=== PATIENT | female | born 1965 | race African-American/Black ===

== ENCOUNTER 2018-10-08 08:47 | Emergency (ER) | payer OTHER ==
[2018-10-08 09:00] VITALS: BP 137/90; PULSE 72; TEMP 98.5; BMI 36.0
[2018-10-08] MEDS ORDERED: IBUPROFEN 400 MG TABLET (FP) PO ONE ×2 (09:09→09:17)
--- NOTE | 2018-10-08 09:14 | PDOC ---
History of Present Illness - General Chief Complaint: Injury Stated Complaint: FALL / LF KNEE PAIN Time Seen by Provider: 10/08/18 09:03 History Source: Patient Exam Limitations: Clinical Condition - History of Present Illness Initial Comments: 10/08/18 09:09 Patient with no significant PMhx present with complains of pain to anterior left knee s/p slip and fall on her way to work an hour ago. Patient report she only hit her knee during the fall and did not hit head or had LOC. Patient report increased pain to left knee with ambulation. Denies previous injury or trauma to knee. Timing/Duration: 1 hour Past History - Past Medical History Allergies/Adverse Reactions: Allergies Allergy/AdvReac Type Severity Reaction Status Date / Time No Known Allergies Allergy Verified 10/08/18 09:01 Home Medications: Ambulatory Orders Naproxen 500 mg PO BID PRN #20 tablet 10/08/18 COPD: No - Suicide/Smoking/Psychosocial Hx Smoking History: Never smoked Hx Alcohol Use: No Drug/Substance Use Hx: No Review of Systems - Review of Systems Able to Perform ROS?: Yes Is the patient limited Colombian proficient: No Constitutional: No: Weakness Respiratory: No: Symptoms reported Cardiac (ROS): No: Symptoms Reported ABD/GI: No: Symptoms Reported Musculoskeletal: Yes: See HPI, Joint Pain (left knee), Joint Swelling (left knee ), Muscle Pain (anterior left knee). No: Muscle Weakness Integumentary: No: Bruising, Change in Color, Erythema Neurological: No: Numbness, Paresthesia, Tingling, Weakness, Dizziness All Other Systems: Reviewed and Negative *Physical Exam - Vital Signs Last Vital Signs Temp Pulse Resp BP Pulse Ox 98.5 F 72 18 137/90 99 10/08/18 08:55 10/08/18 08:55 10/08/18 08:55 10/08/18 08:55 10/08/18 08:55 - Physical Exam General Appearance: Yes: Nourished, Appropriately Dressed, Mild Distress HEENT: positive: Normal ENT Inspection Respiratory/Chest: negative: Respiratory Distress, Accessory Muscle Use Musculoskeletal: positive: Normal Inspection, Other (moderate tenderness over anterior patella of left knee. mild swelling over anterior patella of left knee. negative anterior-posterior drawer test of left knee) Extremity: positive: Normal Capillary Refill, Normal Inspection, Swelling (mild swelling over anterior patella of left knee) Neurologic: positive: Fully Oriented, Alert, Motor Strength 5/5 (left knee) Moderate Sedation - Procedure Monitoring Vital Signs: Procedure Monitoring Vital Signs Temperature 98.5 F 10/08/18 08:55 Pulse Rate 72 10/08/18 08:55 Respiratory Rate 18 10/08/18 08:55 Blood Pressure 137/90 10/08/18 08:55 O2 Sat by Pulse Oximetry (%) 99 10/08/18 08:55 ED Treatment Course - RADIOLOGY Radiology Studies Ordered: Category Date Time Status KNEE 3 POS-LEFT [RAD] Stat Radiology 10/08/18 09:06 Ordered LEG TIB/FIB-LEFT [RAD] Stat Radiology 10/08/18 09:06 Ordered Medical Decision Making - Medical Decision Making 10/08/18 09:14 Patient with no significant PMhx present with complains of pain to anterior left knee s/p slip and fall on her way to work an hour ago. Patient report she only hit her knee during the fall and did not hit head or had LOC. Patient report increased pain to left knee with ambulation. X-rays of left knee ordered. motrin 800mg PO ordered for pain 10/08/18 09:51 X-ray of left knee and lower leg shows no acute fracture or dislocation. Symptoms likely knee contusion. Patient is stable for discharge on the support brace and naproxen as needed for pain. Left knee wrapped with Randal bandage. *DC/Admit/Observation/Transfer Diagnosis at time of Disposition: Contusion of left knee, initial encounter, Left anterior knee pain - Discharge Dispostion Disposition: HOME Condition at time of disposition: Stable Decision to Admit order: No - Prescriptions Prescriptions: Naproxen 500 mg PO BID PRN #20 tablet PRN Reason: pain - Referrals Referrals: Td Plunkett DO [Staff Physician] - - Patient Instructions Printed Discharge Instructions: DI for Knee Pain Additional Instructions: x-ray of knee shows no acute fracture or dislocation. Take medication as prescribed as needed for pain. Keep Randal wrap in left knee daily as needed for pain. Use knee brace to help support knee. Rest knee for the next 2 days. Follow -up referred to orthopedics if symptoms persist for more than 4 days - Post Discharge Activity Forms/Work/School Notes: Back to Work
== END 2018-10-08 09:56 | disposition home or self-care (01) ==
LOC: JERFT 08:47
DX: S80.02XA Contusion of left knee, initial encounter (principal); W18.39XA Other fall on same level, initial encounter; Y93.89 Activity, other specified; Y92.238 Other place in hospital as the place of occurrence of the external cause; Y99.0 Civilian activity done for income or pay
CPT/HCPCS: 73562-TC-LT-FY; 73590-TC-LT-FY; 99281-25

== ENCOUNTER 2019-08-28 16:15 | Emergency (ER) | payer OTHER ==
[2019-08-28 16:24] VITALS: BP 136/86; PULSE 80; BMI 30.5
[2019-08-28 16:25] VITALS: TEMP 98.9
--- NOTE | 2019-08-28 16:26 | PDOC ---
Rapid Medical Evaluation Chief Complaint: Cold Symptoms Time Seen by Provider: 08/28/19 16:24 Medical Evaluation: Allergies Allergy/AdvReac Type Severity Reaction Status Date / Time No Known Allergies Allergy Verified 08/28/19 16:24 Vital Signs Temp Pulse Resp BP Pulse Ox 9839 F H 80 18 136/86 98 08/28/19 16:21 08/28/19 16:21 08/28/19 16:21 08/28/19 16:21 08/28/19 16:21 08/28/19 16:25 I have performed a brief in-person evaluation of this patient. The patient presents with a chief complaint of: uri s/s Pertinent physical exam findings: vss, no resp distress I have ordered the following: none The patient will proceed to the ED for further evaluation. Discharge Disposition - Diagnosis Cough, Flu-like symptoms - Discharge Dispostion Disposition: HOME Condition at time of disposition: Stable - Prescriptions Prescriptions: Ibuprofen 600 mg PO Q6H #30 tablet Ibuprofen 600 mg PO Q6H #30 tablet Ondansetron [Zofran Odt -] 4 mg SL TID #10 od.tablet Ondansetron [Zofran Odt -] 4 mg SL TID #10 od.tablet Oseltamivir Phosphate [Tamiflu] 75 mg PO BID #10 capsule Oseltamivir Phosphate [Tamiflu] 75 mg PO BID #10 capsule - Referrals - Patient Instructions Printed Discharge Instructions: DI for Influenza -- Adult Additional Instructions: You have the flu. This is a virus that will get better on its own in approximately 7-10 days. You will most likely have a fever for 7-10 days because of the flu. This is to be expected. Drink plenty of fluids to prevent dehydration and get plenty of rest. Warm tea and cough drops may help your symptoms as well. Take the tamiflu twice a day for 5 days to help reduce the symptoms of the flu. This medication will not cure the flu. Take Motrin as directed for pain and fever. Take all other medications as prescribed. Follow up with your primary care doctor this week Return to the ED for difficulty breathing, shortness of breath, weakness, or if you have any other changes in your symptoms. - Post Discharge Activity Work/School Note: Back to Work
[2019-08-28] MEDS ORDERED: ACETAMINOPHEN 325 MG TABLET (FP) PO ONE (17:13)
[2019-08-28] MEDS ORDERED: ALBUTEROL SO4 2.5/IPRATROPIUM 0.5 INH SOL 3 ML VIAL.NEB. NEB ONE (17:13)
--- NOTE | 2019-08-28 17:15 | PDOC ---
History of Present Illness - General Chief Complaint: Cold Symptoms Stated Complaint: FEVER/CHILLS/VOMTTING/NAUSEA Time Seen by Provider: 08/28/19 16:24 History Source: Patient Exam Limitations: No Limitations Past History - Travel Traveled outside of the country in the last 30 days: No Close contact w/someone who was outside of country & ill: No - Past Medical History Allergies/Adverse Reactions: Allergies Allergy/AdvReac Type Severity Reaction Status Date / Time No Known Allergies Allergy Verified 08/28/19 16:24 Home Medications: Ambulatory Orders Naproxen 500 mg PO BID PRN #20 tablet 10/08/18 Ibuprofen 600 mg PO Q6H #30 tablet 08/28/19 Ondansetron [Zofran Odt -] 4 mg SL TID #10 od.tablet 08/28/19 Oseltamivir Phosphate [Tamiflu] 75 mg PO BID #10 capsule 08/28/19 COPD: No - Psycho Social/Smoking Cessation Hx Smoking History: Never smoked Hx Alcohol Use: No Drug/Substance Use Hx: No Review of Systems - Review of Systems Able to Perform ROS?: Yes Comments:: 08/28/19 18:28 CONSTITUTIONAL: Present: Fever, chills, body aches Absent: diaphoresis, generalized weakness, malaise, loss of appetite HEENT: Present: rhinorrhea, nasal congestion, throat pain. Absent: difficulty swallowing, mouth swelling, ear pain, eye pain, visual Changes CARDIOVASCULAR: Absent: chest pain, loss of consciousness, palpitations, irregular heart rate, peripheral edema RESPIRATORY: Present: Cough Absent: shortness of breath, dyspnea with exertion, orthopnea, wheezing, stridor, hemoptysis GASTROINTESTINAL: Absent: abdominal pain, abdominal distension, nausea, vomiting, diarrhea, constipation, melena, hematochezia SKIN: Absent: rash, itching, pallor NEUROLOGIC: Present: headache Absent: focal weakness or paresthesias, dizziness, unsteady gait, seizure, mental status changes, bladder or bowel incontinence Is the patient limited Chilean proficient: No *Physical Exam - Vital Signs Last Vital Signs Temp Pulse Resp BP Pulse Ox 98.9 F 80 18 136/86 98 08/28/19 16:21 08/28/19 16:21 08/28/19 16:21 08/28/19 16:21 08/28/19 16:21 - Physical Exam 08/28/19 18:28 GENERAL: Well developed, well nourished. Awake and alert. No acute distress. HEENT: Normocephalic, atraumatic. PERRLA, EOMI. No conjunctival pallor. Sclera are non- icteric. Moist mucous membranes. Oropharynx is clear. NECK: Supple. Full ROM. No JVD. Carotid pulses 2+ and symmetric, without bruits. No thyromegaly. No lymphadenopathy. CARDIOVASCULAR: Regular rate and rhythm. No murmurs, rubs, or gallops. Distal pulses are 2+ and symmetric. PULMONARY: No evidence of respiratory distress. Lungs clear to auscultation bilaterally. No wheezing, rales or rhonchi. ABDOMINAL: Soft. Non-tender. Non-distended. No rebound or guarding. No organomegaly. Normoactive bowel sounds. MUSCULOSKELETAL Normal range of motion at all joints. No bony deformities or tenderness. No CVA tenderness. EXTREMITIES: No cyanosis. No clubbing. No edema. No calf tenderness. SKIN: Warm and dry. Normal capillary refill. No rashes. No jaundice. NEUROLOGICAL: Alert, awake, appropriate. Cranial nerves 2-12 intact. No deficits to light touch and temperature in face, upper extremities and lower extremities. No motor deficits in the in face, upper extremities and lower extremities. Normoreflexic in the upper and lower extremities. Normal speech. Toes are down- going bilaterally. Gait is normal without ataxia. PSYCHIATRIC: Cooperative. Good eye contact. Appropriate mood and affect. Medical Decision Making - Medical Decision Making 08/28/19 18:28 The patient is a 54-year-old female with past medical history of coronary artery disease, status post stent, asthma, who presents to the ER today for 2 days of flulike symptoms. She states that she has had intermittent fevers and chills. Also reports some sore throat. She has been taking Rocio-[place] at home with some relief of her symptoms. She notes that she has felt nauseous and also had associated diarrhea. A/P: Flulike symptoms Exam is unimpressive. Rapid strep is negative Likely flu. Will defer flu testing as patient is in treatment window. 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 I answered all of the patient's questions. The patient was satisfied with the care received and felt comfortable with the discharge plan and treatment plan. The Patient agrees to follow up with the primary care physician/specialist within 24-72 hours. Return precautions were given. Discharge - Discharge Information Problems reviewed: Yes Clinical Impression/Diagnosis: Cough, Flu-like symptoms Condition: Stable Disposition: HOME - Admission No - Follow up/Referral - Patient Discharge Instructions Patient Printed Discharge Instructions: DI for Influenza -- Adult Additional Instructions: You have the flu. This is a virus that will get better on its own in approximately 7-10 days. You will most likely have a fever for 7-10 days because of the flu. This is to be expected. Drink plenty of fluids to prevent dehydration and get plenty of rest. Warm tea and cough drops may help your symptoms as well. Take the tamiflu twice a day for 5 days to help reduce the symptoms of the flu. This medication will not cure the flu. Take Motrin as directed for pain and fever. Take all other medications as prescribed. Follow up with your primary care doctor this week Return to the ED for difficulty breathing, shortness of breath, weakness, or if you have any other changes in your symptoms. - Post Discharge Activity Work/Back to School Note: Back to Work
== END 2019-08-28 18:40 | disposition home or self-care (01) ==
LOC: JERFT 16:15
PROC: 3E0F7GC Introduction of Other Therapeutic Substance into Respiratory Tract, Via Natural or Artificial Opening (ICD-10-PCS; principal; 2019-08-28)
DX: J11.1 Influenza due to unidentified influenza virus with other respiratory manifestations (principal)
CPT/HCPCS: 87070; 87880; 99281-25

== ENCOUNTER 2021-09-27 09:10 | Emergency (ER) | payer OTHER ==
[2021-09-27] MEDS ORDERED: predniSONE 20 MG TABLET (UD) PO ONE (09:29)
[2021-09-27] MEDS ORDERED: ALBUTEROL SO4 2.5/IPRATROPIUM 0.5 INH SOL 3 ML VIAL.NEB. NEB ONE (09:29)
[2021-09-27 09:50] VITALS: BP 124/82; PULSE 78; TEMP 98.8; BMI 34.4
== END 2021-09-27 10:51 | disposition home or self-care (01) ==
LOC: JER 09:10
PROC: 3E0F7GC Introduction of Other Therapeutic Substance into Respiratory Tract, Via Natural or Artificial Opening (ICD-10-PCS; principal; 2021-09-27)
DX: J45.901 Unspecified asthma with (acute) exacerbation (principal)
CPT/HCPCS: 71046-TC-FY; 93005; 93010; 99284-25

== ENCOUNTER 2022-01-06 09:22 | Emergency (ER) | payer OTHER ==
[2022-01-06 09:31] VITALS: BP 145/78; PULSE 74; TEMP 98.6; BMI 30.5
[2022-01-06] MEDS ORDERED: DIPHTH,PERTUSS(ACELL),TET 0.5 ML DISP.SYRIN IM ONE ×2 (10:03→10:07)
== END 2022-01-06 11:18 | disposition home or self-care (01) ==
LOC: JERFT 09:22
PROC: 0HQDXZZ Repair Right Lower Arm Skin, External Approach (ICD-10-PCS; principal; 2022-01-06)
PROC: 3E0234Z Introduction of Serum, Toxoid and Vaccine into Muscle, Percutaneous Approach (ICD-10-PCS; 2022-01-06)
DX: S51.811A Laceration without foreign body of right forearm, initial encounter (principal); Y99.8 Other external cause status
CPT/HCPCS: 73090-TC-RT-FY; 90715; 99283-25

== ENCOUNTER 2022-01-13 12:37 | Emergency (ER) | payer OTHER ==
[2022-01-13 12:48] VITALS: BP 142/84; PULSE 73; TEMP 97.8; BMI 36.8
== END 2022-01-13 13:42 | disposition home or self-care (01) ==
LOC: JER 12:37 → JERFT 12:37
DX: Z48.00 Encounter for change or removal of nonsurgical wound dressing (principal)
CPT/HCPCS: 99281-25

== ENCOUNTER 2022-01-20 11:30 | Emergency (ER) | payer OTHER ==
[2022-01-20 11:39] VITALS: BP 134/79; PULSE 78; TEMP 98.2; BMI 30.5
== END 2022-01-20 13:49 | disposition home or self-care (01) ==
LOC: JERFT 11:30
DX: Z48.02 Encounter for removal of sutures (principal)
CPT/HCPCS: 99281-25

== ENCOUNTER 2023-07-28 15:24 | Emergency (ER) | payer OTHER ==
[2023-07-28 15:51] VITALS: BP 107/69; PULSE 72; RESP 18; TEMP 98; BMI 30.5
== END 2023-07-28 17:05 | disposition home or self-care (01) ==
LOC: JERFT 15:24
DX: M79.622 Pain in left upper arm (principal); V49.40XA Driver injured in collision with unspecified motor vehicles in traffic accident, initial encounter; Y92.9 Unspecified place or not applicable
CPT/HCPCS: 99283-25